=== PATIENT | female | born 1955 | race African-American/Black ===

== ENCOUNTER 2023-07-18 10:27 | Observation (INO) | payer MEDICARE ==
[2023-07-18] MEDS ORDERED: Iopamidol-370 76% 500 ML MDV (1 ML CHARGE) ONE (11:09)
[2023-07-18 11:19] LABS: #Eosinphils 0.1 thou/uL (0.0-0.7); #Monocytes 0.5 thou/uL (0.11-0.59); %Basophils 0.6 % (0.0-1.0); %Eosinophils 2.1 % (0.0-10.0); %Lymphocytes 43.4 % (21.0-51.0); %Neutrophils 43.7 % (42.0-75.0); Hematocrit 36.1 % (36.0-47.0); Hemoglobin 11.4 g/dL (12.0-16.0); Mean Corpuscular HGB CONC 31.6 g/dL (32.0-36.0); Mean Corpuscular Hemoglobin 26.8 pg (27.0-31.0); Mean Corpuscular Volume 84.7 fl (78.0-98.0); Mean Platelet Volume 8.6 fL (7.4-10.4); Platelet Count 278 10x3/uL (130-400); RBC Distribution Width 14.1 % (11.5-14.5); Red Blood Cell (RBC) Count 4.26 mill/uL (4.20-5.40); White Blood Cell (WBC) Count 4.7 10x3/uL (4.8-10.8)
[2023-07-18 11:46] LABS: ALT (SGPT) 14 U/L (8-55); AST (SGOT) 19 U/L (5-34); Albumin 3.8 g/dL (3.4-4.8); Alkaline Phosphatase 91 U/L (40-110); Anion Gap 11 mmol/L (10-20); BUN (Urea Nitrogen) 10 mg/dL (9.8-20.1); Bilirubin, Total 0.7 mg/dL (0.2-1.2); Calc. Creatinine Clearance 0 mL/min (70-130); Calcium 8.7 mg/dL (7.8-10.44); Carbon Dioxide 27 mmol/L (23-31); Chloride 106 mmol/L (98-107); Estimated GFR 97; Glucose 86 mg/dL (80-115); Lipase 10 U/L (8-78); Potassium 3.5 mmol/L (3.5-5.1); Protein, Total 6.8 g/dL (5.8-8.1); Sodium 140 mmol/L (136-145)
[2023-07-18 11:51] LABS: Troponin I Less than 0.010 ng/mL (< 0.028)
[2023-07-18] MEDS ORDERED: Aspirin Chewable 81 MG TAB ONE (14:41)
[2023-07-18] MEDS ORDERED: Acetaminophen 325 MG TAB PO PRN (15:51)
[2023-07-18 17:44] LABS: Troponin I Less than 0.010 ng/mL (< 0.028)
[2023-07-18 18:54] LABS: Troponin I Less than 0.010 ng/mL (< 0.028)
[2023-07-18 19:09] VITALS: BMI 25.3
[2023-07-18] MEDS: Heparin 5,000 UNITS/ML VIAL SC SCH (20:55)
[2023-07-18] MEDS: HYDROcodone/Acetaminophen 5/325 mg Tablet PO PRN (20:55)
[2023-07-18] MEDS: Metoprolol Tartrate 25 MG TAB PO SCH (20:56)
[2023-07-19] MEDS: HYDROcodone/Acetaminophen 5/325 mg Tablet PO PRN ×4 (00:34→16:53)
[2023-07-19 04:58] LABS: #Eosinphils 0.1 thou/uL (0.0-0.7); #Monocytes 0.5 thou/uL (0.11-0.59); #Neutrophils 1.5 thou/uL (1.40-6.50); %Basophils 0.6 % (0.0-1.0); %Eosinophils 2.4 % (0.0-10.0); %Lymphocytes 56.5 % (21.0-51.0); %Monocytes 9.9 % (0.0-10.0); %Neutrophils 30.4 % (42.0-75.0); Hematocrit 36.3 % (36.0-47.0); Hemoglobin 11.3 g/dL (12.0-16.0); Mean Corpuscular HGB CONC 31.1 g/dL (32.0-36.0); Mean Corpuscular Hemoglobin 26.5 pg (27.0-31.0); Mean Corpuscular Volume 85.2 fl (78.0-98.0); Mean Platelet Volume 8.9 fL (7.4-10.4); Platelet Count 296 10x3/uL (130-400); RBC Distribution Width 14.1 % (11.5-14.5); Red Blood Cell (RBC) Count 4.26 mill/uL (4.20-5.40)
[2023-07-19 05:07] LABS: Hemoglobin A1c 5.3 % (4.0-6.0)
[2023-07-19 05:29] LABS: Anion Gap 11 mmol/L (10-20); BUN (Urea Nitrogen) 7 mg/dL (9.8-20.1); Calc. Creatinine Clearance 98 mL/min (70-130); Calcium 8.7 mg/dL (7.8-10.44); Carbon Dioxide 26 mmol/L (23-31); Cardiac Risk 5.1 (Less than 4.5); Chloride 104 mmol/L (98-107); Cholesterol 234 mg/dl (< 200 Desired); Estimated GFR 99; Glucose 87 mg/dL (80-115); HDL Cholesterol 46 mg/dL (>60 Neg Risk); LDL Cholesterol, Calculated 165 mg/dL; Potassium 3.1 mmol/L (3.5-5.1); Sodium 138 mmol/L (136-145); Triglycerides 116 mg/dL (Less than 150)
[2023-07-19] MEDS ORDERED: Potassium Chloride 20 MEQ TAB PO SCH (08:15)
[2023-07-19] MEDS: Metoprolol Tartrate 25 MG TAB PO SCH (08:59)
[2023-07-19] MEDS: Heparin 5,000 UNITS/ML VIAL SC SCH (08:59)
[2023-07-19] MEDS ORDERED: Aspirin Chewable 81 MG TAB PO SCH (09:00)
[2023-07-19] MEDS ORDERED: ADENOSINE 60 MG/20 ML SDV ONE (09:07)
[2023-07-19 11:33] VITALS: BP 141/82; TEMP 97.5
[2023-07-19] MEDS ORDERED: Atorvastatin Calcium 20 MG TAB PO SCH (21:00)
== END 2023-07-19 17:12 | disposition home or self-care (01) ==
LOC: ERS 10:27 → 2SW 14:07
PROVIDERS: ADMIT Hospitalist; ATTEND Hospitalist
DX: R07.89 Other chest pain (principal); M41.9 Scoliosis, unspecified; K21.9 Gastro-esophageal reflux disease without esophagitis; F12.90 Cannabis use, unspecified, uncomplicated; Z79.899 Other long term (current) drug therapy; Z79.82 Long term (current) use of aspirin
CPT/HCPCS: 71045; 71275; 74174; 78452; 80048; 80053; 80061; 83036; 83690; 83880; 84484 ×2; 85025 ×2; 93005; 93017; 93306; 94760 ×2; 96372 ×2; 99285; A9500; G0378 ×3; 36415; J0153; J1644; Q9967